=== PATIENT | male | born 1995 | race Two or more races ===

== ENCOUNTER 2020-05-27 20:43 | Emergency (ER) | payer MEDICAID, OTHER ==
[~2020-05-27] VITALS: Ht 167.6 cm; Wt 68.0 kg
[~2020-05-27 20:43] MED LIST: CEPHALEXIN500 MG ORAL; NKM; TYLENOL EXTRA500 MG ORAL
--- NOTE | 2020-05-27 21:13 | NUR ---
ED Nurse Note: Walk-in patient recently seen at an different facility for lef tfot injury. Patient reports injuring it 3 days ago but did not feel pain at the time. Patient reports increased pain as reason for new visit.
[2020-05-27] MEDS ORDERED: Ketorolac 30mg Inj IV ONE (21:30)
[2020-05-27 22:08] LABS: BASOPHILS % (AUTO) 0.7 % (0.0-2.0); EOSINOPHILS % (AUTO) 0.3 % (0.0-3.0); HEMATOCRIT 39.4 % (42.0-52.0); HEMOGLOBIN 13.5 G/DL (14.2-18.0); MEAN CORPUSCULAR VOLUME 90 FL (80-99); MONOCYTES % (AUTO) 9.2 % (1.0-10.0); NEUTROPHILS % (AUTO) 73.8 % (45.0-75.0); PLATELET COUNT 316 K/UL (150-450); RED BLOOD COUNT 4.39 M/UL (4.70-6.10); RED CELL DISTRIBUTION WIDTH 11.5 % (11.6-14.8); WHITE BLOOD COUNT 12.5 K/UL (4.8-10.8)
--- NOTE | 2020-05-27 22:08 | Diagnostic Imaging Report ---
EXAM: XR Left Ankle Complete, 3 or More Views CLINICAL HISTORY: TRAUMA TECHNIQUE: Frontal, lateral and oblique views of the left ankle. COMPARISON: No relevant prior studies available. FINDINGS: Bones/joints: Unremarkable. No acute fracture. No dislocation. Soft tissues: Unremarkable. IMPRESSION: Unremarkable left ankle x-rays.
[2020-05-27 22:26] LABS: ANION GAP 10 mmol/L (5-15); BLOOD UREA NITROGEN 10 mg/dL (7-18); CALCIUM 8.8 MG/DL (8.5-10.1); CARBON DIOXIDE 29 MMOL/L (21-32); CHLORIDE 100 MMOL/L (98-107); CREATININE 0.8 MG/DL (0.55-1.30); POTASSIUM 3.6 MMOL/L (3.5-5.1); SODIUM 139 MMOL/L (136-145)
[2020-05-27 22:31] LABS: ALANINE AMINOTRANSFERASE 14 U/L (12-78); ALBUMIN 3.2 G/DL (3.4-5.0); ALBUMIN/GLOBULIN RATIO 0.7 (1.0-2.7); ALKALINE PHOSPHATASE 63 U/L (46-116); ASPARTATE AMINO TRANSFERASE 11 U/L (15-37); BILIRUBIN,TOTAL 0.5 MG/DL (0.2-1.0)
[2020-05-27 22:39] LABS: INR 0.9 (0.9-1.1)
--- NOTE | 2020-05-27 22:45 | NUR ---
ED Nurse Note: Patien tolerated medication administration well, will continue to monitor.
--- NOTE | 2020-05-27 23:55 | NUR ---
ED Nurse Note: Patient is sleeping soundly with no s/s of acute distress.
--- NOTE | 2020-05-28 00:07 | Emergency Room Report ---
History of Present Illness General Chief Complaint: Lower Extremity Injury Source: Patient Present Illness HPI The patient presents with left ankle pain. He is a bit unclear but believes that it was injured 2 days ago when he and his girlfriend were drinking alcohol and using methamphetamine. He not sure how he was injured. Ankle is been red and painful. He reports the pain 10/10 at this time. Is worse when ankle is moved for it is touched. He denies fevers or chills. He was seen in a clinic earlier [place] earlier today and they advised that he come to the emergency department because they were unable to perform x-rays. They gave the patient a lidocaine patch. The patient believes his tetanus is up-to-date. He denies any calf tenderness, chest pain or hemoptysis. He was sitting outside of the emergency department for quite a while deciding whether he was going to come to be seen. No sore throat, nausea, vomiting, diarrhea, dysuria, abdominal pain, shortness of breath, depression, dizziness, headache. 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 Patient History Past Medical History: see triage record Social History: Reports: smoking, alcohol use, drug use Social History Narrative with girlfriend Reviewed Nursing Documentation: PMH: Agreed; PSxH: Agreed Nursing Documentation-PMH Past Medical History: No Stated History Review of Systems All Other Systems: negative except mentioned in HPI Physical Exam Vital Signs Date Time Temp Pulse Resp B/P (MAP) Pulse Ox O2 Delivery O2 Flow Rate FiO2 05/27/20 21:13 97.7 86 16 114/58 (76) 97 Room Air Sp02 EP Interpretation: reviewed, normal General Appearance: well appearing, no apparent distress, GCS 15 Head: normocephalic Eyes: bilateral eye PERRL, bilateral eye Scleral Injection ENT: moist mucus membranes Neck: supple Respiratory: lungs clear, normal breath sounds Cardiovascular #1: regular rate, rhythm Cardiovascular #2: 2+ radial (R), 2+ dorsalis pedis (L) - Good capillary refill Gastrointestinal: normal inspection Musculoskeletal: back normal, normal range of motion - Except for left ankle, digits/nails normal, tender - Left ankle, passive movement of ankle not causing increased pain., swelling - Left ankle and dorsum of foot Neurologic: alert, motor strength/tone normal, distal neuro normal, oriented x3 , grossly normal Psychiatric: mood/affect normal - Slightly hyper Skin: warm/dry, other Medical Decision Making Diagnostic Impression: Primary Impression: Cellulitis of left ankle Additional Impression: Substance abuse ER Course Patient presents with unclear ankle pain possibly from injury. Differential includes sprain, fracture, cellulitis, gout, septic joint amongst others. Ligaments are stable. Septic joint a consideration however less likely based on physical exam findings. X-rays and labs are indicated. This does not appear to be gout based on the and based on the involvement of the dorsum of the foot. Patient is treated with Toradol. There will be a low threshold for starting antibiotics. X-ray without fracture. Old injury apparent. Labs significant for leukocytosis , elevated ESR. CMP unremarkable. Tox screen positive for methamphetamine, benzodiazepines and THC. Vancomycin and Rocephin ordered. Patient sleeping. Pyuria. Consideration for STD. Treated previously with Rocephin. Azithromycin ordered and GC/chlamydia ordered. Discussed findings and treatment plan. Advised the patient he needs close outpatient follow-up. Sleepy. Will observe and discharge when more awake. Laboratory Tests Test 05/27/20 21:46 05/27/20 23:39 05/28/20 00:44 White Blood Count 12.5 K/UL (4.8-10.8) H Red Blood Count 4.39 M/UL (4.70-6.10) L Hemoglobin 13.5 G/DL (14.2-18.0) L Hematocrit 39.4 % (42.0-52.0) L Mean Corpuscular Volume 90 FL (80-99) Mean Corpuscular Hemoglobin 30.7 PG (27.0-31.0) Mean Corpuscular Hemoglobin Concent 34.3 G/DL (32.0-36.0) Red Cell Distribution Width 11.5 % (11.6-14.8) L Platelet Count 316 K/UL (150-450) Mean Platelet Volume 6.9 FL (6.5-10.1) Neutrophils (%) (Auto) 73.8 % (45.0-75.0) Lymphocytes (%) (Auto) 16.0 % (20.0-45.0) L Monocytes (%) (Auto) 9.2 % (1.0-10.0) Eosinophils (%) (Auto) 0.3 % (0.0-3.0) Basophils (%) (Auto) 0.7 % (0.0-2.0) Erythrocyte Sedimentation Rate 42 MM/HR (0-15) H Prothrombin Time 10.0 SEC (9.30-11.50) Prothrombin Time INR 0.9 (0.9-1.1) Activated Partial Thromboplast Time 30 SEC (23-33) Sodium Level 139 MMOL/L (136-145) Potassium Level 3.6 MMOL/L (3.5-5.1) Chloride Level 100 MMOL/L (98-107) Carbon Dioxide Level 29 MMOL/L (21-32) Anion Gap 10 mmol/L (5-15) Blood Urea Nitrogen 10 mg/dL (7-18) Creatinine 0.8 MG/DL (0.55-1.30) Estimated Glomerular Filtration Rate > 60 mL/min (>60) Glucose Level 110 MG/DL (74-106) H Calcium Level 8.8 MG/DL (8.5-10.1) Total Bilirubin 0.5 MG/DL (0.2-1.0) Aspartate Amino Transferase (AST) 11 U/L (15-37) L Alanine Aminotransferase (ALT) 14 U/L (12-78) Alkaline Phosphatase 63 U/L (46-116) Total Protein 7.7 G/DL (6.4-8.2) Albumin 3.2 G/DL (3.4-5.0) L Globulin 4.5 g/dL Albumin/Globulin Ratio 0.7 (1.0-2.7) L Urine Color Yellow Urine Appearance Cloudy Urine pH 6.0 (4.5-8.0) Urine Specific [place] 1.020 (1.005-1.035) Urine Protein 1+ (NEGATIVE) H Urine Glucose (UA) Negative (NEGATIVE) Urine Ketones Negative (NEGATIVE) Urine Blood 2+ (NEGATIVE) H Urine Nitrite Negative (NEGATIVE) Urine Bilirubin Negative (NEGATIVE) Urine Urobilinogen Normal MG/DL (0.0-1.0) Urine Leukocyte Esterase 3+ (NEGATIVE) H Urine RBC 5-10 /HPF (0 - 0) H Urine WBC Tntc /HPF (0 - 0) H Urine Squamous Epithelial Cells None /LPF (NONE/OCC) Urine Bacteria Few /HPF (NONE) Urine Opiates Screen Negative (NEGATIVE) Urine Barbiturates Screen Negative (NEGATIVE) Phencyclidine (PCP) Screen Negative (NEGATIVE) Urine Amphetamines Screen Positive (NEGATIVE) H Urine Benzodiazepines Screen Positive (NEGATIVE) H Urine Cocaine Screen Negative (NEGATIVE) Urine Marijuana (THC) Screen Positive (NEGATIVE) H Chlamydia trachomatis RNA Pending Neisseria gonorrhoeae RNA Pending Other X-Ray Diagnostic Results Other X-Ray Diagnostic Results : X-Ray ordered: L ankle # of Views/Limited Vs Complete: 3 View Indication: Other EP Interpretation: Yes Interpretation: no dislocation, no fractures, other - 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, STS Impression: Other Electronically Signed by: Electronically signed by Rowdy Gonzalez MD Last Vital Signs Date Time Temp Pulse Resp B/P (MAP) Pulse Ox O2 Delivery O2 Flow Rate FiO2 05/28/20 06:02 98.0 82 18 116/75 98 Room Air Status: improved Disposition: HOME, SELF-CARE Condition: Improved Scripts Ibuprofen* (MOTRIN*) 600 Mg Tablet 600 MG ORAL Q6H PRN for FOR PAIN, #20 TAB 0 Refills Prov: Rowdy Gonzalez MD 05/28/20 Cephalexin* (KEFLEX*) 500 Mg Capsule 500 MG ORAL EVERY 6 HOURS, #28 CAP Prov: Rowdy Gonzalez MD 05/28/20 Trimethoprim/Sulfamethoxazole 160/800* (BACTRIM DS TABLET*) 1 Each Tablet 1 TAB ORAL Q12H, #14 TAB 0 Refills Prov: Rowdy Gonzalez MD 05/28/20 Referrals: NON PHYSICIAN (PCP) Rowdy Gonzalez MD May 28, 2020 00:07
[2020-05-28] MEDS ORDERED: BACTRIM DS TAB1 EAC1 ORAL (00:13)
[2020-05-28] MEDS ORDERED: IBUPROFEN600 M1 ORAL (00:13)
[2020-05-28] MEDS ORDERED: CEPHALEXIN500 MG ORAL (00:13)
[2020-05-28] MEDS ORDERED: cefTRIAXone 1 GM in NS 55 ML IVPB ONE (00:15)
[2020-05-28] MEDS ORDERED: Bacitracin Oint UD TOPIC ONE (00:15)
[2020-05-28] MEDS ORDERED: Bactrim-DS 1 tab ORAL ONE (00:15)
[2020-05-28 00:16] LABS: APPEARANCE,URINE CLOUDY; COLOR,URINE YELLOW
[2020-05-28 00:17] LABS: BILIRUBIN, URINE NEGATIVE (NEGATIVE); GLUCOSE, URINE (UA) NEGATIVE (NEGATIVE); KETONES,URINE NEGATIVE (NEGATIVE); NITRITE,URINE NEGATIVE (NEGATIVE); PROTEIN,URINE 1+ (NEGATIVE)
[2020-05-28 00:18] LABS: LEUKOCYTE ESTERASE ,URINE 3+ (NEGATIVE); UROBILINOGEN,URINE NORMAL MG/DL (0.0-1.0)
[2020-05-28] MEDS ORDERED: Azithromycin 250mg tab ORAL ONE (00:30)
--- NOTE | 2020-05-28 00:45 | NUR ---
ED Nurse Note: Patien tolerated IV antibiotics well. Will continue to monitor for wakefullness and discharge.
[2020-05-28 02:00] VITALS: BP 120/69
--- NOTE | 2020-05-28 02:00 | NUR ---
ED Nurse Note: Patient is sleeping soundly with no s/s of acute distress. Will continue to monitor for discharge. vital signs stable and documented.
--- NOTE | 2020-05-28 04:00 | NUR ---
ED Nurse Note: Patietn is sleeping soundly with no s/s of acute distress. Will continue to monitor for discharge.
[2020-05-28 06:01] VITALS: BP 116/75
[2020-05-28 06:02] VITALS: BP 116/75
--- NOTE | 2020-05-28 06:02 | NUR ---
ER DISCHARGE NOTE: Patient is cleared to be discharged per ERMD. Patient verbalized understanding of discharge instructions including teaching on crutch use. Patient ID band removed. PAtient IV removed without complication and intact. Patient ambulated to waiting room with crutches to wait for ride.
== END 2020-05-28 06:02 | disposition home or self-care (01) ==
LOC: EMR 22:10
DX: L03.116 Cellulitis of left lower limb (principal); F19.10 Other psychoactive substance abuse, uncomplicated; F17.200 Nicotine dependence, unspecified, uncomplicated
CPT/HCPCS: 36415; 73610; 80053; 80307; 81001; 85025; 85610; 85651; 85730; 87086; 87491; 87590; 96365; 96375; J0696; J1885; Q0144; Z7502; 99284

== ENCOUNTER 2020-06-09 21:03 | Emergency (ER) | payer OTHER ==
[~2020-06-09] VITALS: Ht 170.2 cm; Wt 72.6 kg
[~2020-06-09 21:03] MED LIST changes: +BACTRIM DS TAB1 EAC1 ORAL; +DICYCLOMINE HCL10 MG ORAL; +IBUPROFEN600 M1 ORAL; +IBUPROFEN600 MG ORAL; +KEPPRA500 M4 ORAL; +LIDODERM700 M1 TOPIC; +OMEPRAZOLE20 M2 ORAL; +ONDANSETRON ODT4 MG BC
--- NOTE | 2020-06-09 21:15 | NUR ---
ED Nurse Note: Recieved pt from home, here with c/o left ankle pain s/p fall about 1 week ago, pt denies re-injury, just states ibuprofen is not working for pain, denies cp, sob or any other injuries, pt ambulating with crutches.
[2020-06-09] MEDS ORDERED: Clindamycin 150mg cap ORAL ONE (21:30)
[2020-06-09] MEDS ORDERED: HYDROcodone/Acetamin 5/325 tab ORAL ONE (21:30)
--- NOTE | 2020-06-09 21:38 | Diagnostic Imaging Report ---
EXAM: XR Left Ankle Complete, 3 or More Views CLINICAL HISTORY: PAIN TECHNIQUE: Frontal, lateral and oblique views of the left ankle. COMPARISON: 05/27/2020. FINDINGS: Bones/joints: Ankle mortise is preserved. No acute fracture or dislocation. Calcaneus and the patellar dome are unremarkable. Base of the left fifth metatarsal is unremarkable. Ankle joint is held in mild inversion. Soft tissues: Unremarkable. IMPRESSION: No acute fracture or dislocation, similar to the previous study.
--- NOTE | 2020-06-09 21:40 | Diagnostic Imaging Report ---
EXAM: XR Left Foot Complete, 3 or More Views CLINICAL HISTORY: PAIN TECHNIQUE: Frontal, lateral and oblique views of the left foot. COMPARISON: No previous studies. FINDINGS: Limitations: Limited evaluation due to overexposure. Bones/joints: Grossly, no acute fracture, dislocation, or destructive processes noted, including the base of the left fifth metatarsal. Soft tissues: Soft tissues are unremarkable. No radiopaque foreign body. IMPRESSION: 1. Limited evaluation due to overexposure. 2. No acute fracture or dislocation is detected grossly. 3. In particular, evaluation of the distal phalanges is markedly limited and requires clinical correlation.
[2020-06-09] MEDS ORDERED: ACETAMINOPHEN-1 EAC1 ORAL (21:50)
[2020-06-09] MEDS ORDERED: CLINDAMYCIN HC300 MG ORAL (21:50)
[2020-06-09 22:00] VITALS: BP 126/83
--- NOTE | 2020-06-09 22:00 | NUR ---
ER DISCHARGE NOTE: Patient is cleared to be discharged per ERMD, pt is aox4, on room air, with stable vital signs. pt was given dc and prescription instructions, pt was able to verbalize understanding, pt id band removed without complications. pt is able to ambulate with steady gait. pt took all belongings.
--- NOTE | 2020-06-09 22:02 | Emergency Room Report ---
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 Nursing Documentation-[facility] Past Medical History: No Stated History Physical Exam Vital Signs Date Time Temp Pulse Resp B/P (MAP) Pulse Ox O2 Delivery O2 Flow Rate FiO2 06/09/20 21:07 99.0 87 16 126/83 (97) 98 Room Air Medical Decision Making Diagnostic Impression: Primary Impression: Cellulitis of left ankle Additional Impression: Injury of lower extremity Last Vital Signs Date Time Temp Pulse Resp B/P (MAP) Pulse Ox O2 Delivery O2 Flow Rate FiO2 06/09/20 21:07 99.0 87 16 126/83 (97) 98 Room Air Disposition: HOME, SELF-CARE Condition: Stable Scripts Acetaminophen With Codeine (T#3) (TYLENOL #3 TAB*) Y Tab 1 TAB ORAL Q8H PRN for For Pain, #12 TAB Prov: Rob Alexander MD 06/09/20 Clindamycin Hcl (CLINDAMYCIN HCL) 300 Mg Capsule 300 MG ORAL THREE TIMES A DAY, #21 CAP Prov: Rob Alexander MD 06/09/20 Referrals: NON PHYSICIAN (PCP) Justin [facility] Open 24 hour /7 days a week by Appointment Only [address] [address] Patient Instructions: Ankle Sprain Rob Alexander MD Jun 09, 2020 22:02
== END 2020-06-09 22:00 | disposition home or self-care (01) ==
LOC: EMR 21:22
DX: S89.92XA Unspecified injury of left lower leg, initial encounter (principal); L03.116 Cellulitis of left lower limb; X58.XXXA Exposure to other specified factors, initial encounter; Y92.9 Unspecified place or not applicable
CPT/HCPCS: 73610; 73630; Z7502; 99284

== ENCOUNTER 2020-06-10 01:56 | Emergency (ER) | payer OTHER ==
[~2020-06-10] VITALS: Ht 170.2 cm; Wt 68.0 kg
[~2020-06-10 01:56] MED LIST changes: +ACETAMINOPHEN-1 EAC1 ORAL; +CLINDAMYCIN HC300 MG ORAL
[2020-06-10 01:58] VITALS: BP_SYST 118; BP_SYST 124; BP_DIAS 61; BP_DIAS 78
--- NOTE | 2020-06-10 02:04 | NUR ---
ED Nurse Note: Patient brought in by ambulance RA [id number] with c/o brain convulsions unknown onset, time and cause. Patient does not take any meds for brain convulsions. On inspection, patient has multiple wrist bands from multiple hospitals. Patient was recently discharge for the same complaints. Patient arrived with crutches. Placed on monitor bed
--- NOTE | 2020-06-10 02:05 | NUR ---
ED Nurse Note: ERMD at bedside
--- NOTE | 2020-06-10 02:10 | Emergency Room Report ---
History of Present Illness General Chief Complaint: General Complaint Source: Patient Present Illness HPI This a 25-year-old male who presents with chief complaint of "convulsion." He has no seizure history. He is present here multiple times in the past with the same complaint. He was just here earlier today. He [address] Per interventional pain physician, he called them 6 times a day already. He try to check in under a different name. He had 2 armbands from [facility] with the name Carlito Morrell. Patient said he felt something weird in his brain and said that was seizure. He is not on any medication. He has several CT scan here. Most recently on the . There is no evidence of any trauma. No oral trauma. No incontinence of bowel or urine. Previous drug screen is positive for methamphetamine. Allergies: Coded Allergies: No Known Allergies (Unverified , 12/07/19) COVID-19 Screening Contact w/high risk pt: No Recent Travel to affected area: No Experienced COVID-19 symptoms?: No COVID-19 symptoms experienced: Shortness of Breath COVID-19 Testing performed COMMUNICATION TECHNICIAN: No Patient History Past Medical History: see triage record, old chart reviewed Past Surgical History: none Pertinent Family History: none Social History: Reports: drug use Immunizations: other Reviewed Nursing Documentation: PMH: Agreed; PSxH: Agreed Nursing Documentation-PMH Hx Cancer: Yes - non hodgkin's lymphomas stage 4 Hx Seizures: Yes Review of Systems Eye: Denies: eye pain, blurred vision ENT: Denies: ear pain, nose congestion, throat swelling Respiratory: Denies: cough, shortness of breath Cardiovascular: Denies: chest pain, palpitations Gastrointestinal: Denies: abdominal pain, diarrhea, nausea, vomiting Musculoskeletal: Denies: back pain, joint pain Skin: Denies: rash Neurological: Denies: headache, numbness Endocrine: Denies: increased thirst, increased urine Hematologic/Lymphatic: Denies: easy bruising All Other Systems: negative except mentioned in HPI Physical Exam Vital Signs Date Time Temp Pulse Resp B/P (MAP) Pulse Ox O2 Delivery O2 Flow Rate FiO2 06/10/20 01:58 84 18 06/10/20 01:58 97.5 118/61 (80) 98 Room Air Vitals normal Sp02 EP Interpretation: reviewed, normal General Appearance: well appearing, no apparent distress, alert Head: normocephalic, atraumatic Eyes: bilateral eye PERRL, bilateral eye EOMI ENT: hearing grossly normal, normal pharynx Neck: full range of motion, supple, no meningismus Respiratory: chest non-tender, lungs clear, normal breath sounds Cardiovascular #1: regular rate, rhythm, no murmur Gastrointestinal: normal bowel sounds, non tender, no mass, no organomegaly, no bruit, non-distended Musculoskeletal: back normal, normal range of motion, gait/station normal Psychiatric: mood/affect normal Medical Decision Making Diagnostic Impression: Primary Impression: Amphetamine abuse Additional Impressions: Tremor due to substance abuse Malingering ER Course Patient presents with chief complaint of seizure. There is no obvious seizure disorder. Sound like he is malingering. Also history of drug abuse. I see no need for blood work or CT scan since he had them done recently. Will discharge home. Last Vital Signs Date Time Temp Pulse Resp B/P (MAP) Pulse Ox O2 Delivery O2 Flow Rate FiO2 06/10/20 01:58 98.0 85 18 124/78 98 Room Air Status: unchanged Disposition: HOME, SELF-CARE Condition: Stable Additional Instructions: Stop using drugs. Follow-up with rehab and your doctor within 7 days. Return if worse. Jose Eduardo Veras MD Jun 10, 2020 02:10
--- NOTE | 2020-06-10 02:13 | NUR ---
ER DISCHARGE NOTE: Patient is cleared to be discharged per ERMD, pt is aox4, on room air, with stable vital signs. pt was given dc and prescription instructions, pt was able to verbalize understanding, pt id band removed. pt is able to ambulate with steady gait. pt took all belongings.
== END 2020-06-10 02:19 | disposition home or self-care (01) ==
LOC: EDUNIT# 01:56 → EDBD 01:56 → EMR 02:16 → MERGE 02:16 → EMR 02:19
DX: F15.10 Other stimulant abuse, uncomplicated (principal); G25.1 Drug-induced tremor; Z76.5 Malingerer [conscious simulation]; Z85.72 Personal history of non-Hodgkin lymphomas
CPT/HCPCS: 99281